=== PATIENT | female | born 1950 | race African-American/Black ===

== ENCOUNTER 2024-03-31 09:14 | Emergency (ER) | payer OTHER, SELFPAY ==
[2024-03-31 09:19] VITALS: BP 120/95
--- NOTE | 2024-03-31 09:26 | ED.GENMED ---
History of Present Illness
General
Chief Complaint: Abdominal Pain
Source: patient, records and family
Exam Limitations: none
Time Seen by Provider: 03/31/24 09:24
Nursing documentation reviewed up to this point in time: agreed with
Travel History
Have you had any contact with someone who has COVID-19?: No
Do you have any symptoms of coronavirus? Fever > 100 degrees, chills, cough, shortness of breath, sore throat, loss of taste or smell, muscle aches, or headache?: No
History of Present Illness
History of Present Illness:
71-year-old female presents emergency room complaining of lower abdominal pain is on been ongoing for several months, but worse over the past 3 days. It is in her lower abdomen, and it feels sharp. She states she is urinating a lot. She has been
Dr. Aleksandra Jones in the past. She has had a polypectomy in the past.
Past History
Past History
ED Past Medical History: Asthma, COPD, GERD, Psychiatric (Anxiety) and Other (Chronic pain syndrome, spinal stenosis); Negative HTN, IDDM or NIDDM
ED Past Surgical History: , Gynecological (Partial Hysterectomy) and Other (Rectal surgery for Fissures, Cataracts, Hemorrhoids)
Social History
Tobacco: Smoker
Alcohol: None
Drug: None
Personal:
Living: with family
Family History
Family History: Other (Mother with colon cancer cyst with brain cancer)
Review of Systems
Review of Systems
Allergies reviewed?: Yes
All Other Systems: Not applicable
Constitutional: Reports no symptoms
EENT: Reports no symptoms
Respiratory: Reports no symptoms
Cardiac: Reports no symptoms
ABD/GI: Reports abdominal pain
: Reports no symptoms
Musculoskeletal: Reports no symptoms
Skin: Reports no symptoms
Neurological: Reports no symptoms
Endocrine: Reports no symptoms
Hematologic/Lymphatic: Reports no symptoms
Psychiatric: Reports no symptoms
Phy Exam
Physical Exam
Physical Exam:
Physical Exam
General: Appears uncomfortable, afebrile
Neck: supple. no meningeal signs. normal posterior pharynx
Heart: s1/s2 regular rate and rhythm, no murmur. equal radial
pulses.
HEENT: Pupils equal round reactive to light, EOMI
Lungs: no acute respiratory distress. clear bilaterally
Abdomen: normal bowel sounds. Mild lower abdominal tenderness, no rebound or guarding. No CVAT
Neuro: alert and oriented. no focal neurological deficits cranial nerves II through XII intact
Skin: no rash
Psychiatric: well kept. interactive and cooperative
Extremities: no edema. no calf tenderness. negative homans. good distal pulses
Course
Orders/Labs/Results
Orders:
Orders
03/31/24 09:24
Bladder Scan- Treatment ONCE
03/31/24 09:25
CT Abd/Pel (IV only)-DH only Urgent
Comment:
Reason For Exam: lower abdominal pain 3 days
03/31/24 09:38
IV Insert/Care/Rem.- Treatment PRN
03/31/24 10:06
Complete Blood Count/With Diff Urgent
Comprehensive Metabolic Panel Urgent
Lactic Acid Urgent
Lipase Urgent
03/31/24 10:35
Urinalysis Reflex To Culture Urgent
Date Specimen was Collected: 03/31/24
Time Specimen was Collected: 09:40
Abnormal Lab Results
03/31/24
10:06
RBC 4.07 L 10^6/uL
(4.20-5.40)
Hgb 11.9 L g/dL
(12.0-16.0)
MCHC 31.7 L g/dL
(33.0-37.0)
Carbon Dioxide 31 H mmol/L
(22-30)
Glucose 101 H mg/dl
(70-99)
03/31/24 10:06
03/31/24 10:06
Vital Signs
Initial and Last Documented VS:
Initial Vital Signs
Temp Pulse Resp BP Pulse Ox
98.9 F 70 24 120/95 94
03/31/24 09:19 03/31/24 09:19 03/31/24 09:19 03/31/24 09:19 03/31/24 09:19
Last Documented Vital Signs
Temp Pulse Resp BP Pulse Ox
98.9 F 75 21 125/81 98
03/31/24 09:19 03/31/24 13:15 03/31/24 13:15 03/31/24 13:00 03/31/24 13:15
MDM/Problems Addressed
Differential Diagnosis Includes:
bowel obstruction, diverticulitis
MDM/Problems Addressed:
73-year-old female with lower abdominal pain, unclear etiology. No acute findings on CT abdomen pelvis. Stable for discharge and follow-up with colorectal.
Chronic conditions affecting care:
chronic abdominal pain
*Radiology
Radiology exam reviewed: radiology read reviewed (ct abd/pelv nad, constipation)
*Pulse Oximetry
Patient hypoxic: no
*EKG
Interpreted by ED Provider?: NA
*Medical Apparatus Model Maker Interpretation
Rate: Medical Apparatus Model Maker- N/A
*Critical Care Note
Total Time (30-74mins, 75-104mins- exclusive of procedures): Not Applicable
Data Reviewed
Review of Other/Old Records Reveals: Operative Reports (prior endoscopy no significant findings)
Patient Management
Social determinants of health affecting care: Living situation
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 Schwab for f/u)
Escalation/DeEscalation of care consider admission/obs:
admit not indicated
ED Attending Note
-
Portions of this chart may have been created with voice recognition software.� Occasional wrong word or��sound alike� substitutions may have occurred due to the inherent limitations of voice recognition software.
Discharge Plan
Departure
Patient Disposition: Home (Routine Discharge)
Date of Disposition: 03/31/24
Time of Disposition: 13:34
Patient with high blood pressure during this ER visit?: Yes
Condition: Good
Discharge Problem:
Abdominal pain
Instructions: Abdominal Pain
Prescriptions:
No Action
sumatriptan succinate [Imitrex] 100 MG tablet
100 mg PO DAILYPRN MDD 200mg PRN (Reason: headache)
oxycodone-acetaminophen 1 EACH tablet
1 tab PO Q4HPRN PRN (Reason: moderate pain)
Patient Comments:
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
diazepam 5 MG tablet
5 mg PO TIDPRN PRN (Reason: muscle spasms)
Patient Comments:
patient grain picker on 10/31/21 #[phone]
Metamucil Fiber Singles 1 PACKET powder in packet
1 packet PO BIDPRN PRN (Reason: constipation)
polyethylene glycol 3350 17 GRAMS powder in packet
17 grams PO BIDPRN PRN (Reason: constipation)
cyclobenzaprine 10 MG tablet
5 mg PO BID
Drysol Dab-O-Matic 35 ML solution
1 applic TP MOWEFR
omeprazole 40 MG capsule,delayed release(DR/EC)
40 mg PO DAILY
ascorbic acid (vitamin C) [Vitamin C] 500 MG tablet
500 mg PO DAILY
apple cider vinegar 600 MG capsule
600 mg PO BID
cyanocobalamin (vitamin B-12) 1,000 MCG/ML solution
1,000 mcg IJ MONTHLY
nystatin-triamcinolone 15 GM cream
1 applic topical BID
mupirocin calcium 15 GM cream
1 applic TP BIDPRN PRN (Reason: folliculitis)
simethicone [Gas-X Extra Strength] 125 MG tablet,chewable
125 mg PO TIDPRN PRN (Reason: gas)
zinc 50 MG tablet
50 mg PO DAILY
dicyclomine 10 MG capsule
10 mg PO MEALS
Refresh Classic (PF) 10 DROPS dropperette
1 drops BOTH EYES QIDPRN PRN (Reason: dryness)
Mucinex Sinus-Max Cng-Pain(DM) 1 EACH capsule
1 tab PO BIDPRN PRN (Reason: cough)
Align 4 MG capsule
4 mg PO DAILY
cholecalciferol (vitamin D3) 2,000 UNITS tablet
2,000 units PO BID
Epidiolex 1 UNIT solution
1 puff inhalation .5/DPRN PRN (Reason: chronic pain)
Patient Comments:
patient vaper pen and can use every 15 minutes max 5 times per a day, patient uses [employer] [phone]
lidocaine HCl [Aspercreme (lidocaine HCl)] 73 ML liquid roll-on
1 applic TP BIDPRN PRN (Reason: neck pains)
prednisone 20 MG tablet
40 mg PO DAILY Qty: 10 0RF
duloxetine 60 mg Capsule,Delayed Release(Dr/Ec)
60 mg PO DAILY
Referrals:
Pawan Lake MD [Active] - Call in 1-3 days for appt
Deacon Machado MD [Family Provider] -
Interventions
Interventions:
*Risk Screen - Suicide Last Done: 03/31/24 10:30
*General Assessment Last Done: 03/31/24 10:30
*Neglect/Abuse Screening Last Done: 03/31/24 10:30
ED- Fall Risk Assessment Last Done: 03/31/24 10:30
DE-Nggnvr-Leooffuzun Assessment Last Done: 03/31/24 10:17
Discharge Date and Time
Print Language: MAURITIAN
[2024-03-31 10:21] LABS: % Basophils 0.7 % (0-2); % Eosinophils 1.2 % (0-6); % Immature Granulocytes 0.4 % (0-0.5); % Lymphocytes 33.1 % (20.5-51.1); % Monocytes 5.5 % (1.7-9.3); % Neutrophils 59.1 % (42.2-75.2); Absolute Eosinophils 0.1 10^3/uL (0-0.7); Absolute Lymphocytes 1.9 10^3/uL (1.2-3.4); Absolute Monocytes 0.3 10^3/uL (0.1-0.6); Absolute Neutrophils 3.3 10^3/uL (1.4-6.5); Hematocrit 37.5 % (37.0-47.0); Hemoglobin 11.9 g/dL (12.0-16.0); Mean Corp Hgb Conc. 31.7 g/dL (33.0-37.0); Mean Corpuscular Hgb 29.2 pg (27.0-31.0); Mean Corpuscular Volume 92.1 fL (81.0-99.0); Mean Platelet Volume 9.4 fL (7.4-10.4); Nucleated Red Blood Cells % 0 %; Platelet Count 245 10^3/uL (130-400); Red Blood Cell Count 4.07 10^6/uL (4.20-5.40); White Blood Cell Count 5.7 10^3/uL (4.8-10.8)
[2024-03-31 10:40] LABS: Lactic Acid 0.7 mmol/L (0.7-2.0)
[2024-03-31 10:42] LABS: ALT (SGPT) 11 U/L (0-35); AST (SGOT) 25 U/L (14-36); Albumin 3.8 g/dl (3.5-5.0); Alkaline Phosphatase 87 U/L (38-126); Blood Urea Nitrogen 17 mg/dl (7-17); Calcium 9.5 mg/dl (8.4-10.2); Carbon Dioxide 31 mmol/L (22-30); Chloride 105 mmol/L (98-107); Glucose 101 mg/dl (70-99); Lipase 240 U/L (23-300); Potassium 4.4 mmol/L (3.5-5.1); Sodium 141 mmol/L (135-145); Total Bilirubin 0.5 mg/dl (0.2-1.3); Total Protein 7.2 g/dl (6.3-8.2); eGFR > 60.00
[2024-03-31 10:43] LABS: Urine Albumin Negative (Neg - Trace); Urine Bilirubin Negative (Negative); Urine Character Clear (Clear); Urine Color Yellow; Urine Glucose Negative (Negative); Urine Ketone Negative (Negative); Urine Leukocyte Negative (Negative); Urine Nitrite Negative (Negative); Urine Occult Blood Negative (Negative); Urine Specific Gravity 1.015 (<1.030); Urine Urobilinogen Negative (Neg - 1+)
[2024-03-31 12:25] VITALS: BP 112/66
[2024-03-31 12:44] VITALS: BP 119/68
[2024-03-31 12:46] VITALS: BP 119/68
[2024-03-31 13:00] VITALS: BP 125/81
== END 2024-03-31 13:48 | disposition home or self-care (01) ==
LOC: EMR 09:14
PROVIDERS: EMERGENCY PHYSICIAN Emergency Medicine; FAMILY PHYSICIAN Internal Medicine
DX: R10.30 Lower abdominal pain, unspecified (principal); J45.909 Unspecified asthma, uncomplicated; J44.9 Chronic obstructive pulmonary disease, unspecified; K21.9 Gastro-esophageal reflux disease without esophagitis; F41.9 Anxiety disorder, unspecified; G89.4 Chronic pain syndrome; M48.00 Spinal stenosis, site unspecified; F17.200 Nicotine dependence, unspecified, uncomplicated; Z80.0 Family history of malignant neoplasm of digestive organs; Z87.19 Personal history of other diseases of the digestive system
CPT/HCPCS: 99284; 74177; 80053; 81003; 83605; 83690; 85025; Q9967

== ENCOUNTER → 2024-05-01 16:38 | Outpatient (REF) | payer OTHER, SELFPAY | LOC: PAVMRI 16:38 | PROVIDERS: ATTENDING PHYSICIAN Specialist; FAMILY PHYSICIAN Internal Medicine | DX: M25.512 Pain in left shoulder (principal) | CPT/HCPCS: 73221 ==

== ENCOUNTER → 2024-06-29 14:59 | Outpatient (REF) | payer OTHER, SELFPAY | LOC: HWWDC 14:59 | PROVIDERS: ATTENDING PHYSICIAN Student in an Organized Health Care Education/Training Program | DX: Z12.31 Encounter for screening mammogram for malignant neoplasm of breast (principal) | CPT/HCPCS: 77063; 77067 ==

== ENCOUNTER → 2024-07-08 09:27 | Outpatient (REF) | payer OTHER, SELFPAY | LOC: WDC 09:27 | PROVIDERS: ATTENDING PHYSICIAN Student in an Organized Health Care Education/Training Program | DX: R92.8 Other abnormal and inconclusive findings on diagnostic imaging of breast (principal) | CPT/HCPCS: 77065 ==

== ENCOUNTER 2024-09-04 06:22 | Day surgery (SDC) | payer OTHER, SELFPAY ==
[2024-08-31 13:57] VITALS: BMI 34.8
[2024-09-04] VITALS (13 sets, daily range): BP systolic 78–128; BP diastolic 68–78; BMI 34.8
[2024-09-04] MEDS: TYLENOL 1000 MG PO (11:13)
[2024-09-04] MEDS: CELEBREX 200 MG PO (11:16)
[2024-09-04] MEDS: SUBLIMAZE 25 MCG IV (14:00)
== END 2024-09-04 16:16 | disposition home or self-care (01) ==
LOC: SDS 06:22
PROVIDERS: ATTENDING PHYSICIAN Specialist; FAMILY PHYSICIAN Internal Medicine; OTHER PHYSICIAN Dermatology; OTHER PHYSICIAN Student in an Organized Health Care Education/Training Program; REFERRING PHYSICIAN Internal Medicine
DX: M75.102 Unspecified rotator cuff tear or rupture of left shoulder, not specified as traumatic (principal); M75.42 Impingement syndrome of left shoulder; M75.22 Bicipital tendinitis, left shoulder
CPT/HCPCS: 29827; 29828; 29826; 36415; 93005; C1713

== ENCOUNTER 2025-05-31 06:24 | Day surgery (SDC) | payer OTHER, SELFPAY | END 2025-05-31 11:51 | disposition home or self-care (01) | LOC: GI 06:24 | PROVIDERS: ATTENDING PHYSICIAN Internal Medicine | DX: R13.12 Dysphagia, oropharyngeal phase (principal); K44.9 Diaphragmatic hernia without obstruction or gangrene; K31.89 Other diseases of stomach and duodenum; K31.A0 Gastric intestinal metaplasia, unspecified | CPT/HCPCS: 43239; 88305; 88342 ==

== ENCOUNTER → 2025-06-10 09:43 | Outpatient (REF) | payer OTHER, SELFPAY | LOC: RST 09:43 | PROVIDERS: ATTENDING PHYSICIAN Internal Medicine; FAMILY PHYSICIAN Internal Medicine | DX: R13.12 Dysphagia, oropharyngeal phase (principal) | CPT/HCPCS: 74230; 92611 ==

== ENCOUNTER 2025-06-23 08:14 | Emergency (ER) | payer OTHER, SELFPAY ==
[2025-06-23 08:16] VITALS: BP 118/81
--- NOTE | 2025-06-23 09:30 | ED.GENMED ---
History of Present Illness
General
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
Source: patient and spouse
Exam Limitations: none
Time Seen by Provider: 06/23/25 09:12
Nursing documentation reviewed up to this point in time: agreed with
History of Present Illness
History of Present Illness:
74-year-old female with history as noted significant for hidradenitis suppurativa who presents to the ER for evaluation of bleeding after I&D/cyst removal yesterday. Patient reports that she had what sounds like a Bartholin cyst/abscess removed
yesterday at the dermatology office. She says she sees the nurse practitioner at Dr. Bello's office. She says that the area was reportedly cauterized and she was sent home. She says this morning she noted significant mount of blood on the
dressing and came to the ER for assessment. She still has pain in the area. She has chronic back pain which she says has flared up since arrival but no other acute issues.
Past History
Past History
ED Past Medical History: Asthma, COPD, GERD, Psychiatric (Anxiety) and Other (Chronic pain syndrome, spinal stenosis); Negative HTN, IDDM or NIDDM
ED Past Surgical History: , Gynecological (Partial Hysterectomy) and Other (Rectal surgery for Fissures, Cataracts, Hemorrhoids)
Social History
Tobacco: Smoker
Alcohol: None
Drug: None
Personal:
Living: with family
Family History
Family History: Other (Mother with colon cancer cyst with brain cancer)
Review of Systems
Review of Systems
All Other Systems: ROS reviewed and negative except as documented in HPI and ROS
Skin: Reports other (Bleeding)
Phy Exam
Physical Exam
Physical Exam:
General: Well appearing and non-toxic
HEENT: protecting airway
Neck: appears supple
CV: No evidence of cyanosis
Resp: No accessory muscle use
Abd: Non-distended
: On right labia patient has approximately 2 cm vertical incision where cyst was likely removed; there is some erythema and induration in the area, no drainage noted, no bleeding noted�dressing in place does appear to be bloodsoaked but no active
bleeding.
Extremities: No deformities
Neuro: Alert
Psych: Normal affect
Skin: Intact
Scores
Heart Failure Risk
Heart Failure Risk Score: Not Applicable
Heart Score for Chest Pain Patients
STEMI patient?: Not applicable
Withdrawal Assessment of Alcohol
Withdrawal Assessment Completed?: Not applicable
Course
Orders/Labs/Results
Orders:
Orders
06/23/25 09:31
Acetaminophen [Tylenol] 1,000 mg PO NOW STA
06/23/25 09:39
Amoxicillin 875 mg/Clav 125 mg [Augmentin 875 mg/125 mg] 1 tablet PO NOW STA
Doxycycline [Vibramycin] 100 mg PO NOW STA
06/23/25 09:56
Complete Blood Count/No Diff Urgent
Abnormal Lab Results
06/23/25
09:56
RBC 4.08 L 10^6/uL
(4.20-5.40)
MCHC 32.1 L g/dL
(33.0-37.0)
06/23/25 09:56
Vital Signs
Initial and Last Documented VS:
Initial Vital Signs
Temp Pulse Resp BP Pulse Ox
36.7 C 83 16 118/81 98
06/23/25 08:16 06/23/25 08:16 06/23/25 08:16 06/23/25 08:16 06/23/25 08:16
Last Documented Vital Signs
Temp Pulse Resp BP Pulse Ox
36.7 C 74 16 110/40 100
06/23/25 08:16 06/23/25 10:17 06/23/25 10:17 06/23/25 10:17 06/23/25 10:17
MDM/Problems Addressed
Differential Diagnosis Includes:
Postoperative bleeding
MDM/Problems Addressed:
74-year-old female presents for bleeding from area of Bartholin cyst removal yesterday. Vitals and exam as above�fortunately the area appears hemostatic presently. Will plan to observe for rebleeding. Check CBC for signs of anemia. Reassess
after the above. Fortunately patient is not on any blood thinners. She was discharged with a plan to start ampicillin�will broaden the antimicrobial coverage to doxycycline and Augmentin. Patient is allergic to Bactrim and Cipro.
Hemoglobin stable. No rebleeding on clinical observation. Stable for discharge, follow-up with investment underwriter as an outpatient. Adjusted antibiotic coverage. Patient comfortable with this plan. All questions answered.
Chronic conditions affecting care:
Hidradenitis suppurativa
*Pulse Oximetry
SaO2: 98
Oxygen Mode of Delivery: Room air
Patient hypoxic: no (98%)
*Critical Care Note
Total Time (30-74mins, 75-104mins- exclusive of procedures): Not Applicable
Data Reviewed
Review of Other/Old Records Reveals: Labs
Source: patient and spouse
ED Attending Note
-
Portions of this chart may have been created with voice recognition software.� Occasional wrong word or��sound alike� substitutions may have occurred due to the inherent limitations of voice recognition software.
Discharge Plan
Departure
Patient Disposition: Home (Routine Discharge)
Date of Disposition: 06/23/25
Time of Disposition: 10:34
Patient with high blood pressure during this ER visit?: No
Discharge Problem:
Post-op bleeding, Bartholin cyst
Instructions: Bartholin gland cyst
Prescriptions:
New
doxycycline hyclate 100 mg tablet
100 mg PO BID 10 Days Qty: 20 0RF
amoxicillin-pot clavulanate 875-125 mg tablet
1 tab PO BID 10 Days Qty: 20 0RF
No Action
ascorbic acid (vitamin C) [Vitamin C] 500 MG tablet
1,000 mg PO DAILY
cyanocobalamin (vitamin B-12) 1,000 MCG/ML solution
1,000 mcg IJ MONTHLY
Rx Instructions:
Next dose 09/23/24
Refresh Classic (PF) 10 DROPS dropperette
1 drops BOTH EYES QIDPRN PRN (Reason: dryness)
cholecalciferol (vitamin D3) 2,000 UNITS tablet
5,000 units PO DAILY
clindamycin phosphate [Clindamycin] 1 % Swab
1 applic TOPICAL PRN PRN (Reason: HS)
mupirocin 2 % Ointment
1 applic TOPICAL PRN PRN (Reason: HS)
entecavir 0.5 mg Tablet
0.5 mg PO DAILY
Resinol 2-55 % Ointment
1 applic topical TID
lidocaine 5 % Gel
1 ea topical PRN PRN (Reason: HS)
Cosentyx UnoReady Pen 300 mg/2 mL (150 mg/mL) Pen Injector
300 mg SC Q4W
Rx Instructions:
Next dose due 09/23/2024
polyethylene glycol 3350 [Miralax] 17 gram Powder In Packet
17 g PO DAILY
diazepam [Valium] 5 mg Tablet
5 - 10 mg PO PRN PRN (Reason: muscle spasms/anxiety)
Citrucel (sucrose) Powder
1 tbsp PO DAILY
Advil Cold and Sinus 30-200 mg Capsule
PO
cyclobenzaprine 5 mg Tablet
5 mg PO BID
Referrals:
UNKNOWN - PT NOT,INTERVIEWE [Unknown Provider]
Activity Restrictions/Additional Instructions:
Thank you for visiting the Emergency Department at [facility].
1. Please schedule a follow up appointment as directed. Call first thing tomorrow morning to make an appointment.
2. If indicated, please take your medications as instructed and indicated on discharge paperwork.
3. If any of your symptoms do not improve, or persist, or become more severe within 6-12 hours, please return to the emergency department for further care.
4. Please return to the emergency department if you develop a headache, neck pain/stiffness, fever greater than 100.4F, chest pain, shortness of breath, persistent nausea, vomiting, slurred speech, difficulty walking, numbness/tingling, weakness,
signs of infection or any other symptoms that are worrisome to you.
Please call [phone] if you have any questions.
Interventions
Interventions:
*Risk Screen - Suicide Last Done: 06/23/25 08:16
*General Assessment Last Done: 06/23/25 10:14
*Neglect/Abuse Screening Last Done: 06/23/25 08:16
*ED- Fall Risk Assessment Last Done: 06/23/25 10:14
*ED COVID-19 Vaccine History Last Done: 06/23/25 10:14
ED-Female Genitourinary Assessment Last Done: 06/23/25 10:16
Discharge Date and Time
Print Language: MACEDONIAN
[2025-06-23 10:03] LABS: Hematocrit 37.4 % (37.0-47.0); Hemoglobin 12.0 g/dL (12.0-16.0); Mean Corp Hgb Conc. 32.1 g/dL (33.0-37.0); Mean Corpuscular Volume 91.7 fL (81.0-99.0); Platelet Count 244 10^3/uL (130-400); Red Cell Dist. Width 13.4 % (11.5-14.5)
[2025-06-23] MEDS: VIBRAMYCIN 100 MG PO (10:11)
[2025-06-23] MEDS: TYLENOL 1000 MG PO (10:11)
[2025-06-23] MEDS: AUGMENTIN 875 MG/125 MG 1 TABLET PO (10:11)
[2025-06-23 10:14] VITALS: BMI 34.7
[2025-06-23 10:17] VITALS: BP 110/40
[2025-06-23 11:40] VITALS: BP 102/52
== END 2025-06-23 11:40 | disposition home or self-care (01) ==
LOC: EMR 08:14
PROVIDERS: EMERGENCY PHYSICIAN Emergency Medicine; FAMILY PHYSICIAN Internal Medicine
DX: L76.21 Postprocedural hemorrhage of skin and subcutaneous tissue following a dermatologic procedure (principal); N75.0 Cyst of Bartholin's gland; F17.200 Nicotine dependence, unspecified, uncomplicated
CPT/HCPCS: 99283; 85027; 99285

== ENCOUNTER → 2025-07-25 06:37 | Outpatient (REF) | payer OTHER, SELFPAY | LOC: MRI 3T 06:37 | PROVIDERS: ATTENDING PHYSICIAN Anesthesiology Pain Medicine; FAMILY PHYSICIAN Internal Medicine | DX: M54.16 Radiculopathy, lumbar region (principal) | CPT/HCPCS: 72148 ==